=== PATIENT | female | born 1970 | race Caucasian/White ===

== ENCOUNTER 2022-10-18 14:23 | Outpatient (AMB) | payer OTHER, SELFPAY ==
[2022-10-18 14:24] VITALS: BP 220/98; PULSE 128; O2SAT 100; BMI 25.2
--- NOTE | 2022-10-18 14:24 | A.OFFPC_ITS ---
Vital Signs 3 10/18/22 14:24 10/18/22 14:41 Height 5 ft 4 in Weight 147 lb BMI 25.2 BP 220/98 H 172/98 H Blood Pressure Location Lt brachial Lt brachial Position Sitting Sitting Pulse 128 H 110 H Pulse Source Pulse Oximeter Pulse Oximeter Temp Source Skin Pulse Oximetry (%) 100 Oxygen Delivery Method Room Air Intake Visit Reasons: Medication Follow Up Intake Note: Patient is here to follow up on medication Media Supervisor Required: No Allergies bee venom protein (honey bee) Allergy (Unknown, Verified 10/18/22 14:33) Unknown Medication List - Last Reconciled 10/18/22 by JARED Mcgowan lisinopril-hydrochlorothiazide 10-12.5 mg 1 tab PO DAILY Tobacco use date assessed: 10/18/22 Dental Screening Dental Screen Date: 10/18/22 Did you have a dental visit in the last 12 months?: No Did you have a dental problem in the last 6 months where you did not have access to dental care?: No HPI Medication Follow Up 2 HPI0 Details Patient is a 52-year-old female who presents today to follow-up on hypertension. Patient of Dr. Grant, last visit 09/2021. Medical history significant for hypertension, tobacco abuse, low back pain. Patient reports smoking 1/2 ppd - encouraged smoking cessation. She reports compliance with blood pressure medication. Reports following low-sodium diet. She denies shortness of breath or chest pain, no headache, no vision changes. She does not check her blood pressures at home. Patient reports right inner wrist lump which is increasing in size for the past some time now, no pain. [facility] Medical History Gestational diabetes Tobacco abuse Hypertension Surgical History History of tonsillectomy History of section Family History Father CAD (coronary artery disease) CHF (congestive heart failure) Hypertension CVD (cardiovascular disease) Mother No problems noted. Sister No problems noted. Sister No problems noted. Daughter No problems noted. Daughter No problems noted. Social History Housing: Apartment Patient Tobacco Use Status: Current everyday Tobacco user Tobacco use type: Cigarette Cigarettes Per Day: 10 e-Cigarette/Vaping Use: Never Used Second Hand Smoke Exposure: No Current occupational status: employed Cognitive needs: No Hearing needs: No Vision needs: Yes Questionnaire PHQ-9 Over the last 2 weeks, how often have you been bothered by any of the following problems? 1. Little interest or pleasure in doing things: not at all 2. Feeling down, depressed, or hopeless: not at all 3. Trouble falling or staying asleep, or sleeping too much: not at all 4. Feeling tired or having little energy: not at all 5. Poor appetite or overeating: not at all 6. Feeling bad about yourself - or that you are a failure or have let yourself or your family down: not at all 7. Trouble concentrating on things, such as reading the newspaper or watching television: not at all 8. Moving or speaking so slowly that other people could have noticed. Or the opposite - being so fidgety or restless that you have been moving around a lot more than usual: not at all 9. Thoughts that you would be better off or of hurting yourself in some way: not at all Total score: 0 Depression Screening Interpretation: Negative 64121 - PHQ-9 Billing: Yes Source: Developed by Drs. Rihc Lake, Anastacia Siddiqui, Gilbert Luna and colleagues, with an educational chanelle from [employer]. Thrive Questionnaire Date Thrive assessed: 10/18/22 I am a: Patient What is your living situation today?: I have a steady place to live Within the past 12 months, did the food you bought not last and you didn't have the money to get more?: Never true Within the past 12 months, did you worry whether your food would run out before you got money to buy more?: Never true Do you have trouble paying for medicines?: No Do you have trouble getting transportation to medical appointments?: No Do you have trouble paying your heating and electricity bill?: No Do you have trouble taking care of your child, family member or friend?: No Do you have trouble with day-to-day activities such as bathing, preparing meals, shopping, managing finances, etc.?: No Are you currently unemployed and looking for a job?: No Are you interested in more education?: No Currently or been in a relationship where the following occur: no concerns reported AUDIT C Alcohol Use Questionnaire (AUDIT-C) 1. How often do you have a drink containing alcohol?: Monthly or less 2. How many drinks containing alcohol do you have on a typical day when you are drinking?: 1 or 2 3. How often do you have six or more drinks on one occasion?: Never Total Score: 1 Score Reviewed/Action Taken: No SATISH-7 AMB Questionnaire SATISH-7 Date SATISH - 7 assessed: 10/18/22 Feeling nervous, anxious, or on edge: 0 = Not at all Not being able to stop or control worryin = Not at all Worrying too much about different things: 0 = Not at all Trouble relaxin = Not at all Being so restless that it is hard to sit still: 0 = Not at all Becoming easily annoyed or irritable: 0 = Not at all Feeling afraid as if something awful might happen: 0 = Not at all Total SATISH-7 score (0-4 normal; 5-9 mild; 10-14 moderate; 15-21 severe): 0 Source: Developed by Drs. Rich Lake, Anastacia Siddiqui, Gilbert Luna and colleagues, with an educational chanelle from [employer]. SATISH-7 Assessment Billing SATISH-7 Assessment Tool: SATISH-7 Assessment 54956 Review of Systems Const Denies body aches, Denies chills, Denies fever(s) and Denies headache(s) Eyes Denies change in vision ENT Denies dizziness, Denies otalgia, Denies headache(s), Denies nasal discharge, Denies sinus pain and Denies sore throat Card Denies chest pain, Denies edema, Denies lightheadedness and Denies dyspnea Resp Denies dyspnea and Denies wheezing GI Denies abdominal pain Denies dysuria Musc Denies myalgias Skin/Breast Reports as per HPI and Denies rash Neuro Denies dizziness and Denies headache(s) Aller/Immun Denies wheezing Physical exam (Primary Care) Vital Signs: Last Vital Signs Pulse 110 H 10/18/22 14:41 BP 172/98 H 10/18/22 14:41 Pulse Ox 100 10/18/22 14:24 Oxygen Delivery Method Room Air 10/18/22 14:24 BMI result Body Mass Index 25.2 Tobacco/Smoking Status: Tobacco use Status Tobacco use date assessed 10/18/22 10/18/22 14:32 Patient Tobacco Use Status Current everyday Tobacco 10/18/22 14:25 Tobacco use type Cigarette 10/18/22 14:25 e-Cigarette/Vaping Use Never Used 10/18/22 14:25 PHQ-9: PHQ-9 Score PHQ-9: Total score 0 10/18/22 14:36 Depression Screening Interpretation: Negative Thrive Assessment: Date of Thrive Assessment Date Thrive assessed 10/18/22 10/18/22 14:32 Currently or been in a relationship where the following occur: no concerns reported Const General: cooperative and no acute distress Orientation/consciousness: patient oriented x3 HENMT Head: Yes normocephalic and Yes atraumatic Ears: TM's normal bilaterally Face and sinus: Yes sinuses nontender Mouth: oropharynx normal and moist mucous membranes Throat: Yes posterior oropharynx normal Eyes General: appearance normal, both eyes and all related structures Pupils: Equal, round and reactive pupils present Neck Neck: Yes normal visual inspection, Yes full ROM and Yes no lymphadenopathy Resp Effort & Inspection: normal respiratory effort and able to speak in complete sentences Auscultation: clear to auscultation bilaterally, no crackles, no rales, no rhonchi and no wheezes Cardio Rate: regular rate Rhythm: regular rhythm Heart sounds: S1 normal heart sound present and S2 normal heart sound present GI Auscultation: normal bowel sounds Skin Full body images: 2 1. Right inner wrist raised lump about 1cm in diameter, nontender, skin is intact Neuro General: patient oriented x3 Cranial nerves: Yes Equal, round and reactive pupils present Gait exam (Neuro): Normal gait present Extrem General: Yes full ROM and No edema Assessment and Plan Assessment & Plan (1) Skin lump of arm: Code(s): R22.30 - Localized swelling, mass and lump, unspecified upper limb Plan: Right inner wrist raised lump about 1cm in diameter, nontender, skin is intact Will obtain ultrasound (2) Hypertension: Code(s): I10 - Essential (primary) hypertension Plan: Goal BP equal or less than 140/90 Blood pressure elevated in the office today-patient reports that her blood pressures are usually high in MDs offices - she denies any acute symptoms in the office today Will increase lisinopril-hydrochlorothiazide to 20-12.5 mg daily Patient was encouraged to monitor her blood pressure couple times per week and keep blood pressure log Follow-up with nurse in 2 weeks for BP recheck Signs and symptoms reviewed when to notify provider or go to the emergency department Patient agreed with the plan (3) Tobacco abuse: Code(s): Z72.0 - Tobacco use Plan: Encouraged smoking cessation Plan Follow-up in 6 months for PE or sooner as needed Orders: Orders 2 US extremity nonvascular santacruz Today R22.30 - Localized swelling, mass and lump, unspecified upper limb Medications: New 2 blood pressure monitor As directed 1 ea 0RF I10 - Essential (primary) hypertension lisinopril-hydrochlorothiazide 20-12.5 mg 1 tab PO DAILY 90 tabs 0RF I10 - Essential (primary) hypertension Discontinued 2 lisinopril-hydrochlorothiazide 10-12.5 mg Discontinued Reason: Doctor's Order 1 tab PO DAILY 90 tabs 1RF I10 - Essential (primary) hypertension Coding Level of Care Code Est Pt Level 4 (03265) Diagnoses Skin lump of arm R22.30 Hypertension I10 Tobacco abuse Z72.0 Additional Codes SATISH-7 Assessment Billing - SATISH-7 Assessment Tool: SATISH-7 Assessment 91939 ([id number])
[2022-10-18 14:41] VITALS: BP 172/98; PULSE 110
== END 2022-10-18 15:10 | disposition home or self-care (01) ==
PROVIDERS: PCP Internal Medicine; Visit Provider Nurse Practitioner Family
DX: R22.30 Localized swelling, mass and lump, unspecified upper limb (principal); I10 Essential (primary) hypertension; Z72.0 Tobacco use
CPT/HCPCS: 99214

== ENCOUNTER 2023-07-18 14:16 | Outpatient (AMB) | payer OTHER, SELFPAY ==
[2023-07-18 14:24] VITALS: BP 188/96; PULSE 111; O2SAT 98; BMI 25.5
--- NOTE | 2023-07-18 14:24 | A.OFFPC_ITS ---
Vital Signs 07/18/23 14:24 Height 5 ft 4 in Weight 148 lb 8 oz BMI 25.5 BP 188/96 H Blood Pressure Location Lt brachial Position Sitting Pulse 111 H Pulse Source Pulse Oximeter Pulse Oximetry (%) 98 Oxygen Delivery Method Room Air Intake Visit Reasons: Check Up /Med F/U - see comments Founder / Ceo Required: No Accompanied by: Self / Same As Patient Allergies bee venom protein (honey bee) Allergy (Unknown, Verified 07/18/23 14:25) Unknown Medication List - Last Reconciled 07/18/23 by Pat Grant MD blood pressure monitor As directed ibuprofen (Advil) 400 mg PO Q8H lisinopril-hydrochlorothiazide 20-12.5 mg 1 tab PO DAILY Tobacco use date assessed: 07/18/23 Dental Screening Dental Screen Date: 10/18/22 HPI Check Up /Med F/U - see comments HPI Details 53-year-old female smoker with a history of hypertension, impaired glucose tolerance and hypercholesterolemia coming in for follow-up. Seen last 2022. [facility] Medical History (Updated 07/18/23 @ 14:59 by Pat rGant MD) Breast cancer screening by mammogram Skin lump of arm Gestational diabetes Tobacco abuse Hypertension Surgical History (Updated 11/24/22 @ 12:35 by Cecilia Spain) History of tonsillectomy History of section Family History (System 11/24/22 @ 12:35 by Cecilia Spain) Father CAD (coronary artery disease) CHF (congestive heart failure) Hypertension CVD (cardiovascular disease) Mother No problems noted. Sister No problems noted. Sister No problems noted. Daughter No problems noted. Daughter No problems noted. Social History (Updated 07/18/23 @ 14:50 by Pat Grant MD) Housing: Apartment Patient Tobacco Use Status: Current everyday Tobacco user Tobacco use type: Cigarette Cigarettes Per Day: 10 Years Smoked: start teenager e-Cigarette/Vaping Use: Never Used Second Hand Smoke Exposure: No Current occupational status: employed Cognitive needs: No Hearing needs: No Vision needs: Yes Questionnaire PHQ-9 Over the last 2 weeks, how often have you been bothered by any of the following problems? 1. Little interest or pleasure in doing things: not at all 2. Feeling down, depressed, or hopeless: not at all 3. Trouble falling or staying asleep, or sleeping too much: not at all 4. Feeling tired or having little energy: not at all 5. Poor appetite or overeating: not at all 6. Feeling bad about yourself - or that you are a failure or have let yourself or your family down: not at all 7. Trouble concentrating on things, such as reading the newspaper or watching television: not at all 8. Moving or speaking so slowly that other people could have noticed. Or the opposite - being so fidgety or restless that you have been moving around a lot more than usual: not at all 9. Thoughts that you would be better off or of hurting yourself in some way: not at all Total score: 0 Source: Developed by Drs. Rich Lake, Anastacia Siddiqui, Gilbert Luna and colleagues, with an educational chanelle from [employer]. Thrive Questionnaire Date Thrive assessed: 07/18/23 I am a: Patient What is your living situation today?: I have a steady place to live Within the past 12 months, did the food you bought not last and you didn't have the money to get more?: Never true Within the past 12 months, did you worry whether your food would run out before you got money to buy more?: Never true Do you have trouble paying for medicines?: No Do you have trouble getting transportation to medical appointments?: No Do you have trouble paying your heating and electricity bill?: No Do you have trouble taking care of your child, family member or friend?: No Do you have trouble with day-to-day activities such as bathing, preparing meals, shopping, managing finances, etc.?: No Are you currently unemployed and looking for a job?: No Are you interested in more education?: No Currently or been in a relationship where the following occur: no concerns reported THRIVE Score: 0 AUDIT C Alcohol Use Questionnaire (AUDIT-C) 1. How often do you have a drink containing alcohol?: Monthly or less 2. How many drinks containing alcohol do you have on a typical day when you are drinking?: 1 or 2 3. How often do you have six or more drinks on one occasion?: Never Total Score: 1 Score Reviewed/Action Taken: No SATISH-7 AMB Questionnaire SATISH-7 Date SATISH - 7 assessed: 07/18/23 Feeling nervous, anxious, or on edge: 0 = Not at all Not being able to stop or control worryin = Not at all Worrying too much about different things: 0 = Not at all Trouble relaxin = Not at all Being so restless that it is hard to sit still: 0 = Not at all Becoming easily annoyed or irritable: 0 = Not at all Feeling afraid as if something awful might happen: 0 = Not at all Total SATISH-7 score (0-4 normal; 5-9 mild; 10-14 moderate; 15-21 severe): 0 Source: Developed by Drs. Rich Lake, Anastacia Siddiqui, Gilbert Luna and colleagues, with an educational chanelle from [employer]. Physical exam (Primary Care) Vital Signs: Last Vital Signs Pulse 111 H 07/18/23 14:24 BP 188/96 H 07/18/23 14:24 Pulse Ox 98 07/18/23 14:24 Oxygen Delivery Method Room Air 07/18/23 14:24 BMI result Body Mass Index 25.5 Tobacco/Smoking Status: Tobacco use Status Tobacco use date assessed 07/18/23 07/18/23 14:28 Patient Tobacco Use Status Current everyday Tobacco 07/18/23 14:28 Tobacco use type Cigarette 07/18/23 14:28 e-Cigarette/Vaping Use Never Used 07/18/23 14:28 PHQ-9: PHQ-9 Score PHQ-9: Total score 0 07/18/23 14:39 Thrive Assessment: Date of Thrive Assessment Date Thrive assessed 07/18/23 07/18/23 14:28 Currently or been in a relationship where the following occur: no concerns reported Const General: alert; No acute distress Eyes Conjunctivae: conjunctivae normal Resp Auscultation: clear to auscultation bilaterally Cardio Rate: regular rate Rhythm: regular rhythm GI Inspection: Yes normal to inspection Extrem General: Yes normal to inspection and No edema Assessment and Plan Assessment & Plan (1) Tobacco abuse: Code(s): Z72.0 - Tobacco use Plan: Patient is strongly advised to stop smoking! (2) Hypertension: Code(s): I10 - Essential (primary) hypertension Plan: Continue with blood pressure medication. Decrease salt intake and exercise on lisinopril hydrochlorothiazide 20/12.5 mg once a day (3) Hypercholesterolemia: Code(s): E78.00 - Pure hypercholesterolemia, unspecified Plan: Avoid fried foods, chicken skin, eggs, butter margarine, pastries and meat. Be it pork or beef they have a lot of cholesterol LDL goal of less than 130 and triglyceride of less than 150 (4) Impaired glucose tolerance: Code(s): R73.02 - Impaired glucose tolerance (oral) Plan: Decrease the amount of carbohydrate intake, pasta, bread, rice and potatoes are all sugar and that is aside from all the sweet stuff, remember that fruits are good but they are Sweet also. (5) Breast cancer screening by mammogram: Code(s): Z12.31 - Encounter for screening mammogram for malignant neoplasm of breast Plan: Patient is reminded to have mammogram done (6) Colon cancer screening: Code(s): Z12.11 - Encounter for screening for malignant neoplasm of colon Plan: Patient is reminded about colonoscopy (7) Wrist pain, right: Code(s): M25.531 - Pain in right wrist (8) Cyst of tendon sheath: Code(s): M67.80 - Other specified disorders of synovium and tendon, unspecified site Orders: Orders Complete Blood Count Auto Diff Today I10 - Essential (primary) hypertension Comprehensive Met. Panel Today I10 - Essential (primary) hypertension Vitamin B12 and Folate Today I10 - Essential (primary) hypertension XR hand wrist RT Today M25.531 - Pain in right wrist Free T4 (Free Thyroxine) Today I10 - Essential (primary) hypertension Thyroid Stimulating Hormone Today I10 - Essential (primary) hypertension Lipid Panel Today E78.00 - Pure hypercholesterolemia, unspecified, I10 - Essential (primary) hypertension US extremity nonvascular santacruz 10/18/22 R22.30 - Localized swelling, mass and lump, unspecified upper limb MM tomosynthesis screening BI Today Z12.31 - Encounter for screening mammogram for malignant neoplasm of breast Referrals Orthopedics Referral M25.531 - Pain in right wrist Cologuard Test Z12.11 - Encounter for screening for malignant neoplasm of colon Coding Level of Care Code Est Pt Level 4 (03215) Complex EM visit Add On G2211 Diagnoses Tobacco abuse Z72.0 Hypertension I10 Hypercholesterolemia E78.00 Impaired glucose tolerance R73.02 Breast cancer screening by mammogram Z12.31 Colon cancer screening Z12.11 Wrist pain, right M25.531 Cyst of tendon sheath M67.80
== END 2023-07-18 15:06 | disposition home or self-care (01) ==
PROVIDERS: PCP Internal Medicine; Visit Provider Internal Medicine
DX: Z72.0 Tobacco use (principal); I10 Essential (primary) hypertension; E78.00 Pure hypercholesterolemia, unspecified; R73.02 Impaired glucose tolerance (oral); Z12.31 Encounter for screening mammogram for malignant neoplasm of breast; Z12.11 Encounter for screening for malignant neoplasm of colon; M25.531 Pain in right wrist; M67.80 Other specified disorders of synovium and tendon, unspecified site
CPT/HCPCS: 99214; G2211